=== PATIENT | female | born 1980 | race Caucasian/White ===

== ENCOUNTER 2021-08-24 06:54 | Day surgery (SDC) | payer OTHER, SELFPAY ==
[2021-08-20 07:57] VITALS: BMI 34.1
[2021-08-24 07:48] VITALS: BMI 34.0
[2021-08-24 07:58] VITALS: BP 124/52; PULSE 98; RESP 16; TEMP 36.6
[2021-08-24] MEDS: LACTATED RINGERS 1000 ML 1,000 ML 100 ML IV ×2 (08:00→10:17)
[2021-08-24] MEDS: ETHYL CHLORIDE 116 ML SPRAY 1 APPLIC TOPICAL (08:27)
[2021-08-24 09:09] LABS: Ur HCG Qualitative* Negative (Negative)
--- NOTE | 2021-08-24 09:57 | W.PM.GYNPROC ---
Procedure Note Time Seen by Provider: 09:58 Date Seen: 08/24/21 Procedure Details: DATE: 08/24/21 PREOPERATIVE DIAGNOSIS: History of menorrhagia. Irregular spotting on Mirena IUD POSTOPERATIVE DIAGNOSIS: History of menorrhagia. Irregular spotting on Mirena IUD NAME OF PROCEDURE: 1. Hysteroscopy. 2. D and C 3. Radha endometrial ablation. SURGEON: Trace ANESTHESIA: Monitored anesthesia care and paracervical block COMPLICATIONS: None . ESTIMATED BLOOD LOSS: <10 mL. FINDINGS: Normal-appearing uterine cavity, normal-appearing tubal ostia bilaterally.. PATHOLOGY SPECIMENS: Endometrial curettings. PROCEDURE: After obtaining informed consent, the patient was taken to the operating room where she received monitored anesthesia care. She was prepared and draped in the normal sterile fashion, in the dorsal lithotomy position. An open-sided bivalve speculum was introduced into the vagina and the cervix visualized. The anterior lip of the cervix was grasped with a single-tooth tenaculum for traction. A paracervical block was then administered using a total of 20 mL of a 50/50 mixture of 0.25% Marcaine and 1% lidocaine plain. The uterus was gently sounded. Sound length was 9 cm. The cervix length was determined to be 3.5 cm using Hegar dilators, yielding a uterine cavity length of 5.5 cm. The cervix was gently dilated to a #6 Hegar dilator. A hysteroscope was then advanced under direct visualization through the cervix into the uterine cavity. Sterile normal saline was used as distending medium. The uterine cavity was carefully inspected with the findings noted above. The hysteroscope was then removed. The endometrial lining was then sharply curetted. The Radha device was then set to a cavity length of 5.5 cm, inserted through the cervical os into the uterine cavity to the level of the fundus, and deployed. The device was sealed against the cervix. The safety checks were then passed x2 and the 2-minute treatment cycle initiated. Following completion of the treatment cycle, the Radha device was removed. The hysteroscope was advanced again into the uterine cavity and the uterine cavity inspected. A good ablation was noted from the internal os to fundus and to the cornua bilaterally. Pictures were taken for documentation purposes. The hysteroscope was removed. The tenaculum was removed. There was little bleeding from the tenaculum site, which was controlled with direct pressure sponge stick. All instruments were then removed. The patient tolerated the procedure well. Sponge, lap, needle, and instrument counts reported as correct x2. The patient was taken to the recovery room awake in a stable condition.
[2021-08-24 10:00] VITALS: BP 97/54; PULSE 88; RESP 14; TEMP 36.5; O2SAT 94
--- NOTE | 2021-08-24 10:02 | W.ANESCHARGE ---
Anesthesia Charges Start Date/Time Anesthesia Start Date: 08/24/21 Anesthesia Start Time: 09:11 Stop Date/Time Anesthesia Stop Date: 08/24/21 Anesthesia Stop Time: 09:59 Summary Emergency: No
[2021-08-24] MEDS: BUPIVACAINE 0.25% 30 ML 15 ML INJECTION (10:06)
[2021-08-24 10:15] VITALS: BP 100/58; PULSE 80; RESP 14; O2SAT 95
[2021-08-24 10:30] VITALS: BP 97/57; PULSE 84; RESP 14; O2SAT 94
[2021-08-24 10:46] VITALS: BP 112/74; PULSE 89; RESP 16; O2SAT 99
[2021-08-24 11:12] VITALS: BP 102/62; PULSE 82; RESP 16; O2SAT 98
--- NOTE | 2021-08-24 12:47 | W.ANESCHARGE ---
Anesthesia Charges Start Date/Time Anesthesia Start Date: 08/24/21 Anesthesia Start Time: 09:11 Stop Date/Time Anesthesia Stop Date: 08/24/21 Anesthesia Stop Time: 09:59 Summary Emergency: No
--- NOTE | 2021-09-03 14:27 | SUR.PREOP ---
Preoperative documentation charted by Eugene Reagan, closed that portion of chart by this nurse. Need to send to billing.
== END 2021-08-24 11:15 | disposition home or self-care (01) ==
PROVIDERS: PCP Family Medicine; Visit Provider Obstetrics & Gynecology
PROC: 0UF98ZZ Fragmentation in Uterus, Via Natural or Artificial Opening Endoscopic (ICD-10-PCS; CPT 58563; principal; 2021-08-24 08:30)
DX: N92.0 Excessive and frequent menstruation with regular cycle (principal); Z97.5 Presence of (intrauterine) contraceptive device
CPT/HCPCS: 58563; 00952; 81025; 88305; J1885; J2250; J2405; J2704; J3010; J3490; J7120

== ENCOUNTER 2021-10-01 14:00 | Outpatient (CLI) | payer OTHER, SELFPAY ==
--- NOTE | 2021-10-01 14:00 | CRLHL7_ITS ---
For Patients: As a result of the Century Cures Act, medical imaging exams and procedure reports are released immediately into your electronic medical record. You may view this report before your referring provider. If you have questions, please contact your health care provider. BILATERAL SCREENING MAMMOGRAM WITH COMPUTER-AIDED DETECTION AND TOMOSYNTHESIS TECHNIQUE: CC and MLO views were obtained. These mammographic images have been obtained using full-field digital technique. These mammographic images were interpreted with the benefit of computer-aided detection. Breast tomosynthesis was used in this interpretation. COMPARISON FILM: None. Baseline study. FINDINGS: There are scattered areas of fibroglandular density. IMPRESSION: There is no radiographic evidence for malignancy. ASSESSMENT: BI-RADS Category 1: Negative RECOMMENDATION: Routine screening mammogram in 1 year. A lay language report of this examination will be provided to the patient. PANKAJ AWAD M.D. Diagnostic Radiologist [email or web address] Transcribed: 7:[address]/Dictated by: Pankaj Awad MD @ 10/04/2021 1:50:00 PM (Electronically Signed)
== END 2021-10-01 14:01 | disposition home or self-care (01) ==
LOC: MAMMO 14:01
PROVIDERS: PCP Family Medicine; Visit Provider Family Medicine
DX: Z12.31 Encounter for screening mammogram for malignant neoplasm of breast (principal)
CPT/HCPCS: 77063; 77067

== ENCOUNTER 2023-07-14 14:49 | Outpatient (CLI) | payer OTHER, SELFPAY ==
--- NOTE | 2023-07-14 15:00 | CRLHL7_ITS ---
For Patients: As a result of the Century Cures Act, medical imaging exams and procedure reports are released immediately into your electronic medical record. You may view this report before your referring provider. If you have questions, please contact your health care provider. INDICATION: Pelvic pain. TECHNIQUE: Transabdominal and transvaginal pelvic ultrasound. COMPARISON: There is a report but no images from an outside pelvic ultrasound dated 03/24/2023. FINDINGS: Uterus is anteverted and measures 8.5 x 4.3 x 5.8 cm. Delete that endometrial stripe thickness is 5 mm scar in the lower uterine segment. Ovaries were seen transabdominally only and appear normal. Normal color spectral Doppler flow to both ovaries. The left ovarian cyst mentioned on the previous report is not visible. IMPRESSION: Normal pelvic ultrasound. Dictated by Afshin Ernandez MD @ 07/18/2023 8:53:21 AM (Electronically Signed)
== END 2023-07-14 14:50 | disposition home or self-care (01) ==
PROVIDERS: PCP Family Medicine; Visit Provider Family Medicine
DX: R10.2 Pelvic and perineal pain (principal)
CPT/HCPCS: 76830; 76856; 93976

== ENCOUNTER 2024-08-19 18:30 | Outpatient (CLI) | payer OTHER, SELFPAY ==
[2024-08-21 18:05] LABS: HPV Source Cervix; HPV, High Risk by TMA Not Detected
== END 2024-08-19 18:31 | disposition home or self-care (01) ==
PROVIDERS: PCP Family Medicine; Visit Provider Physician Assistant
DX: N93.8 Other specified abnormal uterine and vaginal bleeding (principal); Z12.4 Encounter for screening for malignant neoplasm of cervix
CPT/HCPCS: 87624; 87625; 88141; 88142

== ENCOUNTER 2024-10-20 19:42 | Emergency (ER) | payer OTHER, SELFPAY ==
[2024-10-20] VITALS (8 sets, daily range): BP systolic 128–150; BP diastolic 80–110; PULSE 91–105; RESP 14–20; TEMP 36.9; O2SAT 96–99; BMI 36.3
--- OUTSIDE RECORDS SUMMARY | 2024-10-20 19:44 | XMS_ITS | Encounter Summary ---
Author Organization [facility] Address [address] [address] Phone Care Team Providers Care Principal Process Engineer Name Role Phone Choice, No Pcp-Patient Primary Care Provider Mag vailable Donato Price MD Primary Care Provider + Encounter Details Date Type Department Care Team (Late st Contact Info) Description 12/16/2020 Lab Requisition [address] [phone] [facility] Employee Encounter for other administrative examinations Social History Tobacco Use Types Packs/Day Years Used Date Smoking Tobacco: Never Smokeless Tobacco: Never Alcohol Use Standard Drinks/Week Comments Not Currently 0 (1 standard drink = 0.6 oz pur e alcohol) PHQ-2 Answer Date Recorded PHQ-2 Total 2 11/03/2020 Comments No Sex and Gender Information Value Date Recorded Sex Assigned at Not on file Legal Sex Female 4:55 PM CDT Gender Identity Not on file Sexual Orientation Not on file 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 No / Unsure 12/10/2020 9:52 AM CDT documented as of this encounter Functional Status * Patient's Vision Adequate to Safely Complete Daily Activities Answer Date of Assessment Author Yes 09/27/2020 9:36 PM CDT Juliana Flowers CNA * Patient's Memory Adequate to Safely Complete Daily Activities Answer Date of Assessment Author Yes 09/27/2020 9:36 PM CDT Juliana Flowers CNA documented as of this encounter Mental Status * Patient's Judgment Adequate to Safely Complete Daily Activities Answer Entry Date Author Yes 09/27/2020 9:36 PM CDT Juliana Flowers CNA documented in this encounter Plan of Treatment Not on file documented as of this encounter Procedures Procedure Name Priority Date/Time Associated Diagnosis Comments SARS-COV-2/INFLUEN ZA A AND B/RESPIRATORY SYNCYTIAL VIRUS, MOLECULAR DETECTION Routine 12/16/2020 10:58 AM CDT Encounter for other administrative examinations documented in this encounter Results * SARS-COV-2/INFLUENZA A&B/RESPIRATORY SYNCYTIAL VIRUS, MOLECULAR DETECTION (12/16/2020 10:58 AM CDT) SARS-CoV-2 RNA (COVID-19) Not Detected Not Detected, Presumptive Negative, Negative 12/16/2020 11:54 AM CDT [facility] Influenza A Not Detected Not Detected, Invalid 12/16/2020 11:54 AM CDT [facility] Influenza B Not Detected Not Detected, Invalid 12/16/2020 11:54 AM CDT [facility] Respiratory Syncytial Virus Negative Negative 12/16/2020 11:54 AM CDT [facility] Swab ENTIRE NASOPHARYNX / Unknown COVID-19 Collection / Unknown 12/16/2020 10:58 AM CDT 12/16/2020 11:03 AM CDT [facility] Health EC MICROBIOLOGY - GENE RAL ORDERABLES Final Result Performing Organization Address City/State/[facility] Co de Phone Number [facility] [address] [place] [address] documented in this encounter Visit Diagnoses Diagnosis Encounter for other administrative examinations documented in this encounter Care Teams Principal Process Engineer Relationship Specialty Start Date End Date Choice, No Pcp-Patient PCP - General 09/24/20 12/23/20 Donato Price MD PCP - General Family Medicine 06/18/21 documented as of this encounter
--- OUTSIDE RECORDS SUMMARY | 2024-10-20 19:44 | XMS_ITS | Clinical Summary ---
Author Organization [facility] Address [address] [address] Phone Care Team Providers Care Gun Numberer Name Role Phone Donato Price MD Primary Care Provider + Allergies Active Allergy Reactions Criticality Noted Date Comments Penicillins Hives High 03/03/2016 Tuberculin Ppd RASH Medium 10/01/2020 Medications Fexofenadine HCl (TOMA ALLERGY OR) Take 180 mg by mouth one time a day. Active levonorgestrel (levonorgestrel ) 20 MCG/24HR 52 mg intra uterine device Insert 1 Intra Uterine Device into the uterus Continuous. Due to be changed in April of 2021. Was inserted in April of 2016. Active levothyroxine (Synthroid) 175 MCG tabletIndicatio ns:Hypothyroidi sm, postsurgical,Pa pillary thyroid carcinoma (HCC) Take 1 tab daily for 6 days, and 2 tabs on day seven of each week. 100 Tablet 04/22/2021 Active buPROPion XL (Wellbutrin XL) 150 MG 24 hour extended release tabletIndicatio ns:Depressive disorder,Anxiet y TAKE 1 TABLET BY MOUTH ONE TIME A DAY. 90 Tablet 09/14/2021 Active citalopram (CeleXA) 40 MG tabletIndicatio ns:Depressive disorder,Anxiet y Take 1 Tablet by mouth one time a day. 90 Tablet 10/06/2021 Active Active Problems Problem Noted Date Diagnosed Date Papillary thyroid carcinoma 10/01/2020 Overview (04/21/2021): No HOOVER treatment. Did have 4/6 nodes +. Total thyroidectomy in 2019. : Thyroglobulin 0.3, and Thyg antibody negative. Assessment & Plan (06/18/2021 11:27 AM CDT): As long as the Thyroglobulin level stays below 0.5, and the antibody is not present; with a TSH below 2.6, I would not make any changes. If the TSH goes above 2.6, then would increase your dose slightly (like maybe a 25 mcg pill once a week). Repeat U/s in another year. Let me know of any changes you notice. Repeat TSH in July - August. Assessment & Plan (12/10/2020 10:22 AM CDT): Dose change for levothyroxine to allow TSH suppression between 0.1 and 0.5 If you have symptoms of hyperthyroidism, let me know and we can adjust the dose. Symptoms : Palpitations, heart racing, tremor, insomnia, irregular cycles, anxiety/ irritability, weight gain or loss, hair loss, heat intol, or lose bowel. U/s of the neck in April. Sooner if you notice any changes. Take a daily dose of vitamin D3 2000 I.U. daily Hypothyroidism, postsurgical 10/01/2020 Overview (12/09/2020): No HOOVER treatment. Did have 4/6 nodes +. Total thyroidectomy in 2019. Assessment & Plan (10/01/2020 2:54 PM CDT): 1. Would have a target TSH of 0.1- 0.5 , or higher if you have symptoms of hyperthyroidism 2. Continue with your current dose of levothyroxine 150 x 6 days and 300 mcg once a week. 3. Repeat ultrasound 4. Labs today for thyroglobulin, and TSH, and T4. Allergic rhinitis 04/19/2018 Depressive disorder 04/19/2018 Anxiety 11/02/2010 Resolved Problems Problem Noted Date Diagnosed Date Resolved Date Choledocholithiasis with acu te cholecystitis with obstruction 09/26/2020 11/03/2020 Overview (09/26/2020): Intraoperative cholangiogram completed with cholecystectomy demonstrating stone in distal common duct with minimal flow of contrast into the duodenum Acute cholecystitis 09/25/2020 11/04/19 Primary malignant neoplasm of thyroid gland 10/17/2019 12/09/2020 Fever and chills 05/10/2017 11/03/2020 Sore throat 05/10/2017 11/03/2020 Viral URI with cough 05/10/2017 021 Overview (11/02/2020): Impression - 10May2017: influenza A and B are nagative, strep is negative, will send for cx. I discussed delayed antibiotic tx if she is not feeling better in the next 4 days then I will take the Z jennifer salt water garggle RTC if no improvement Dont take the antibiotic with your celexa. Finish the course of antbiotics and you can resume your celexa. due to prolongation of Q-T Obesity 03/04/2016 11/03/2020 37+ weeks gestation completed 09/30/2008 11/03/2020 History of section 09/30/2008 11/03/2020 Overview (11/02/2020): x 2 Polyhydramnios, with delivery 09/30/2008 11/03/2020 Disorder of coccyx 08/27/2008 Overview (11/02/2020): Coccydynia Abnormality in heart rate or rhythm 08/13/2008 11/03/2020 hydrops 08/13/2008 11/03/2020 Immunizations Immunization Administration Dates Next Due Influenza Quad Preservative Free 03/11/2015,04/2013 Influenza Trivalent Live Int ranasal (Flumist) 11/10/2010 Influenza Trivalent With Preservative 11/14/2012 ,12/20/2011 Influenza Unspecified Formulation 2018,03/11/2015,11/22/2013,2012,12/20/2011,11/10/2010,11/12/2008,1 03/09/2007,11/20/2006,12/21/2005 Tdap (7 years and older) 08/07/2018,11/12/2008 Surgical History Surgery Date Site/Laterality Comments TUBAL LIGATION 02/21/2012 Date Of Procedure: 2013 SECTION Date Of Procedure: 2007, 2008, 2012 WISDOM TOOTH EXTRACTION CHOLECYSTECTOMY, LAPAROSCOPIC 09/26/2020 Abdomen/N/A Procedure: LAPAROSCOPY CHOLECYSTECTOMY WITH CHOLANGIOGRAMS; Surgeon: Thad Pinzon MD; Location: [facility] ERCP 09/28/2020 Mouth/N/A Procedure: ENDOSCOPIC RETROGRADE CHOLANGIOPANCREATOGRAPHY WITH STENT PLACEMENT, balloon sweep, sphincterotomy; Surgeon: Rolf Solis MD; Location: [facility] Medical devices from this surgery are in the Medical Devices section. THYROIDECTOMY APPENDECTOMY THYROIDECTOMY,ANOOP,LATIA NECK SURG 10/21/2018 N/A Medical History Medical History Date Comments Vitamin D deficiency 02/21/2016 Note: Level is 15. Start vitamin D 2,000 iu daily and recheck in 3-6 months Date Onset: Feb 2016 Hyperlipidemia 02/21/2016 Date Onset: Feb 2016 Anxiety Depression Thyroid cancer (HCC) Pap smear for cervical cancer screening 03/04/19 17 Neg HPV neg 37+ weeks gestation completed 09/30/2008 Abnormality in heart r ate or rhythm 08/13/2008 Acute cholecystitis 09/25/2020 Choledocholithiasis with acu te cholecystitis with obstruction 09/26/2020 Intraoperative cholangi ogram completed with cholecystectomy demonstrating stone in distal common duct with minimal flow of contrast into the duodenum Disorder of coccyx 08/27/2008 Coccydynia hydrops 08/13/2008 History of section 09/30/2008 Form atting of this note might be different from the original. x 2 Obesity 03/04/2016 Polyhydramnios, with delivery 09/30/2008 Sore throat 05/10/2017 Viral URI with cough 05/10/2017 Impression - 10May2017: influenza A and B are nagative, strep is negative, will send for cx. I discussed delayed antibiotic tx if she is not feeling better in the next 4 days then I will take the Z jennifer salt water garggle RTC if no improvement Dont take the antibiotic with your celexa. Finish the course of antbiotics and you can resume your celexa. 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 Not on file Not on file Obstetrics History Para Term AB IAB SAB Ectopic Molar Multiple Living Live Births 3 3 3 0 0 0 0 0 0 0 3 3 Date Outcome GA Total Labor Labor/2nd/3rd Weight Sex Type Anes PTL Leatha A1 A5 Name Clin 2007 Term 41w 0d 3374 g (7 lb 7 oz) F CS-Un spec Livin g Millie Delivery Location:[facility] Comments:Breech 2008 Term 37w 0d 3800 g (8 lb 6 oz) M CS-LT ranv Spinal N Livin g 8 9 Kunal Block Delivery Location:[facility] Comments: SVT 2012 Term 39w 1d 0h 01m 4165 g (9 lb 2.9 oz) M CS-LT ranv Spinal N Livin g 8 9 [place],BAB Y BOY LOCHE R, JOSE W Delivery Location:[facility] Last Filed Vital Signs Vital Sign Reading Time Taken Comments Blood Pressure 108/70 06/18/2021 11:07 AM CDT Pulse 81 06/18/2021 11:07 AM CDT Temperature 35.9 C (96.6 F) 11/03/2020 8:29 AM CDT Respiratory Rate 16 11/03/2020 8:29 AM CDT Oxygen Saturation 99% 06/18/2021 11:07 AM CDT Inhaled Oxygen Concentration - - Weight 94.3 kg (208 lb) 06/18/2021 11:07 AM CDT Height 167.6 cm (5' 6) 06/18/2021 11:07 AM CDT Body Mass Index 33.57 06/18/2021 11:07 AM CDT Plan of Treatment Health Maintenance Due Date Last Done Comments Cervical Cancer Screening 1980 Last pap w/ HPV Testing 1980 Last pap w/o HPV Testing 1980 MAMMO,SCREEN 1980 Hepatitis B Vaccine (Standin g Order) (1 of 3 - 19+ 3-dose series) 1999 Pneumococcal/PCV20 Vaccine: Pediatrics (2-5 yrs) and At-Risk Patients (6-49 yrs) (Standing Order) (1 of 2 - PCV) 1999 HPV Vaccine (Standing Order) (1 - Risk 3-dose SCDM series) 2007 TETANUS (Standing Order) 08/07/2028 08/07/2018, 10/22 PERTUSSIS (Standing Order) Completed 08/07/2018, Medical Devices Implanted Type Area Airplane Gas Tank Liner Assembler Device Identifier Shelf Expiration Date Model / Serial / Lot Stent Panc Ch 4fr 3cm [place] - [id number] Implanted:Qty: 1 on 09/28/2020 by Rolf Solis MD at [facility] N/A: Bile Duct [id number] / NA / [id number] Advance Directives For more information, please contact: [phone] * Full Code (Latest Code Status on File) Date Activated Date Inactivated Comments 09/26/2020 11:01 AM 09/28/2020 8:52 PM * Full Code Date Activated Date Inactivated Comments 09/26/2020 8:04 AM 09/26/2020 11:01 AM * Full Code Date Activated Date Inactivated Comments 09/26/2020 5:50 AM 09/26/2020 7:52 AM Care Teams Gun Numberer Relationship Specialty Start Date End Date Donato Price MD PCP - General Family Medicine 06/18/21
--- OUTSIDE RECORDS SUMMARY | 2024-10-20 19:44 | XMS_ITS | Clinical Summary ---
Author Organization [facility] Address [address] [place] [address] Care Team Providers Care Blood Coordinator Name Role Phone Ana Gudino MD Primary Care Provider [phone] Source Comments You are receiving this document as you are listed as the primary care provider,follow-up provider, or the patient has been referred to you for consultation.This is in compliance with the Medicare and[facility] EHR Incentive Program,which states Providers who transition their patient to another setting of careor provider of care or refers their patient to another provider of care shouldprovide summary care record for each transition of care or referral. [facility] All[facility] Active Allergy Reactions Criticality Noted Date Comments Penicillins Rash High 09/09/2003 Medications loratadine (CLARITIN) 10 MG tablet Take 1 tablet by mouth daily as needed. LW Addl Instr:Indicate d for: Allergies 90 3 0 Active citalopram (CELEXA) 40 MG tablet Take 1 tablet by mouth daily (every 24 hours). 90 tablet 3 6 Active trimethoprim-cady ymyxin B (POLYTRIM) 32063-3.1 UNIT/ML-% eye drop solutionIndicati ons:Acute bacterial conjunctivitis, unspecified laterality Place 1 drop into the right eye every 4 hours. 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/2016): Coccydynia Resolved Problems Problem Noted Date Diagnosed Date Resolved Date with poor obstetric history 11/16/2011 03/11/2015 Overview (10/12/2016): with other poor obstetric history(V23.49) Immunizations Immunization Administration Dates Next Due Flu Vac Preserv Free (3+yrs) 11/14/2012, 12/20/2011,11/12/2008,2007,11/20/2006,12/21/2005 Influenza IIV4 (Quadrivalent ) 0.5mL (81536) 03/11/2015,11/22/2013 Influenza LAIV (Nasal, 2-49 yrs) 11/10/2010 TDAP (BOOSTRIX) 11/12/2008 Family History Medical History Relation Name Comments Cancer Maternal Grandfather Adopted Maternal Grandmother Thyroid Disorder Maternal Grandmother Relation Name Status Comments Father Alive Mother Alive Brother Alive Maternal Grandfather Maternal Grandmother Paternal Grandfather Paternal Grandmother Social History Tobacco Use Types Packs/Day Years Used Date Smoking Tobacco: Never Smokeless Tobacco: Never Alcohol Use Standard Drinks/Week Comments No 0 (1 standard drink = 0.6 oz pur e alcohol) Comments No Sex and Gender Information Value Date Recorded Sex Assigned at Not on file Legal Sex Female 6:01 AM CDT Gender Identity Not on file Sexual Orientation Not on file 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 Not on file Not on file Not on file Last Filed Vital Signs Vital Sign Reading Time Taken Comments Blood Pressure 104/76 08/04/2015 9:27 AM CDT Pulse 72 08/04/2015 9:27 AM CDT Temperature 36.7 C (98.1 F) 10/25/2014 10:19 AM CDT Respiratory Rate 18 10/25/2014 10:19 AM CDT Oxygen Saturation 98% 10/25/2014 10:19 AM CDT Inhaled Oxygen Concentration - - Weight 85.9 kg (189 lb 7 oz) 03/11/2015 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 Height 166.4 cm (5' 5.5) 03/11/2015 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 Body Mass Index 31.04 03/11/2015 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 Plan of Treatment Health Maintenance Due Date Last Done Comments Hep C Screening (Preventive Services) 1980 Mammogram 1980 Adult Preventive Visit 1998 HepB Vaccine (1) 1999 HPV Vaccine (1 - 3-dose SCDM series) 2007 Cervical Cancer Screening Due 11/23/2013 11/22/2013, 06/18/2012, 07/12/2011, Additional history exists DTaP/Tdap/Td Vaccine (2 - Tdap) 11/12/2018 11/12/2008, 11/12/2008 (Completed) COVID-19 Vaccine (1 - season) 2023 Influenza Vaccine (#1) 2024 6, 11/22/2013, 11/14/2012, Additional history exists Zoster/Shingles Vaccine (1 of 2) 2030 HIV Screening (Preventive Services) Completed 10/11/2011, 03/13/2008, 11/06/2006 HepA Vaccine Aged Out No longer eligi ble based on patient's age to complete this topic Hib Vaccine Aged Out No longer eligi ble based on patient's age to complete this topic IPV (Polio) Vaccine Aged Out No longe r eligible based on patient's age to complete this topic MCV4 Vaccine Aged Out No longer eligi ble based on patient's age to complete this topic Meningococcal B Vaccine Aged Out No l onger eligible based on patient's age to complete this topic Pneumococcal Vaccine Aged Out No long er eligible based on patient's age to complete this topic Procedures Procedure Name Priority Date/Time Associated Diagnosis Comments ANATOMICAL PATH LIQUID BASED Routine 11/22/2013 11:40 AM CDT HIV ANTIBODY Routine 10/11/2011 4:52 PM CDT Special screening examination for other specified viral diseases Screening examination for venereal disease from Last 3 Months or Most Recently Relevant to Health Maintenance Results * Pap Smear (11/22/2013 11:40 AM CDT) 11/22/2013 11:4 0 AM CDT Narrative HP CONVERSION - 12/09/2013 10:56 AM CDT FINAL GYNECOLOGICAL CYTOLOGY REPORT Pathology #: [id number] Date Obtained: 11/22/2013 Date Received: 11/25/2013 INTERPRETATION/RESULTS: Negative for Intraepithelial Lesion or Malignancy. SPECIMEN ADEQUACY: Satisfactory for Evaluation. Endocervical cells/transformation zone component present. Verified on 12/09/2013 by VALE CERVANTES(ASCP) (electronic signature) CLINICAL NOTES: Abnormal bleeding: No, LMP: ending now, Hormonal TX: No LIQUID BASED PAP SMEAR SPECIMEN TYPE: CERVICAL & HPV REGARDLESS OF PAP RESULT PLEASE NOTE: The pap smear is a screening test designed to aid in the detection of cervical cancer and its precursor lesions. It is not a diagnostic procedure and should not be used as the sole means of detecting cervical cancer. Both false-positive and false-negative reports may occur. End of Report Ana Estrada CREDIT REFERENCE CLERK, CAMPAIGN MANAGEMENT SPECIALIST LAB_1 F inal Result HP CONVERSION * HIV ANTIBODY (10/11/2011 4:52 PM CDT) HIV 1/HIV 2 Non-React Non-Reacti ve HP CONVERSION 10/11/2011 4:52 PM CDT 10/11/2011 8:14 PM CDT Patria Castellon CREDIT REFERENCE CLERK, CAMPAIGN MANAGEMENT SPECIALIST LAB_1 Final Result HP CONVERSION from Last 3 Months or Most Recently Relevant to Health Maintenance [place] [phone] Advance Directives * Full Code (Latest Code Status on File) Date Activated Date Inactivated Comments 05/08/2012 1:04 PM 05/11/2012 1:38 PM Care Teams Blood Coordinator Relationship Specialty [place] [id number] [facility] [place] [id number] PCP - General 07/31/13
--- NOTE | 2024-10-20 19:46 | CT_ITS ---
Patient: ROBERT REID Facility:?[facility] R[facility] Patient ID:?[id number] Site Patient ID:?[id number]. Site :?1980 Study:?CT-Head Angio CODE STROKE W/ 95CC ISOVUE 370-10/20/2024 8:00:44 PM Ordering Physician:?Joseph Fierro Final Report: INDICATION: Acute stroke, right-sided numbness, slurred speech. TECHNIQUE: CTA head using intravenous contrast with bolus tracking, 3D angiographic rendering using maximum intensity projection (MIP) and images permanently archived. CTA neck using intravenous contrast with bolus tracking, 3D angiographic rendering using maximum intensity projection (MIP) and images permanently archived. FINDINGS: CTA head: There is normal opacification of the intracranial vasculature. There is no large vessel occlusion or significant intracranial stenosis. No aneurysm is identified. CTA neck: There is no significant carotid artery stenosis or dissection. There is no significant vertebral artery stenosis or dissection. IMPRESSION: Unremarkable head CTA. No significant carotid or vertebral artery stenosis or dissection. Please note that all CT scans at this facility use dose modulation, iterative reconstruction, and/or weight-based dosing when appropriate to reduce radiation dose to as low as reasonably achievable. Dictated by Jluis James MD @ 10/20/2024 8:50:46 PM Signed by:?Jluis James MD @10/20/2024 8:50:46 PM (Electronic Signature)
--- NOTE | 2024-10-20 19:46 | CRLHL7_ITS ---
For Patients: As a result of the Century Cures Act, medical imaging exams and procedure reports are released immediately into your electronic medical record. You may view this report before your referring provider. If you have questions, please contact your health care provider. INDICATION: Facial numbness. Slurred speech TECHNIQUE: Non-contrast CT of the head is submitted. No comparisons. FINDINGS: Small regions of decreased attenuation involving the superior cerebellar hemispheres may represent small chronic lacunar infarcts. The ventricles, sulci and gyri are of normal size, shape and contour. Midline structures are centrally located. No convincing evidence of intra- or extra-axial fluid collections. IMPRESSION: 1. No radiographic evidence of acute intracranial abnormalities. 2. Small regions of decreased attenuation involving the superior cerebellar hemispheres may represent small chronic lacunar infarcts. Please note that all CT scans at this facility use dose modulation, iterative reconstruction, and/or weight-based dosing when appropriate to reduce radiation dose to as low as reasonably achievable. Dictated by Lazaro Naranjo MD @ 10/20/2024 8:09:05 PM (Electronically Signed)
--- NOTE | 2024-10-20 19:52 | ED_ITS ---
HPI - Neuro Symptoms/Deficit General Time Seen by Provider: 19:48 Date Seen: 10/20/24 Chief Complaint: Neuro Symptoms/Altered Deficit Stated Complaint: Stroke Time Seen by Provider: 10/20/24 19:48 Source: patient, EMS and RN notes reviewed Mode of arrival: EMS Limitations: no limitations History of Present Illness HPI Narrative: This 44-year-old female was brought in by [facility] on a stroke code. Her last known well was about 630. She was driving and started to note her right face felt funny, felt numb and tingly. Her son called her on the phone at some point and she noted her speech was slurred. She noted no difficulty with her arm or leg on that side. No visual changes, no double vision. EMS got her blood sugar to be 120. Her blood pressure was 1 50s systolic, heart rate low 100s. Patient denied any headache, no trauma. She has no history of Chavira's palsy. Does have a history of thyroid cancer status post thyroidectomy. She has had a tubal l igation, is on no hormones or contraceptives. She is not on any blood thinners. Related Data Home Medications ?Medication ?Instructions ?Recorded ?Confirmed bupropion HCl 150 mg 24 hr tablet, 150 mg PO DAILY 10/20/24 extended release citalopram 40 mg tablet 40 mg PO DAILY 08/17/2109/22 levothyroxine 175 mcg tablet 112 mcg PO DAILY 08/19/24 10/20/24 levothyroxine 50 mcg capsule 50 mcg PO QDAY 08/19/24 0 10/20/24 fexofenadine .ROUTE 10/20/24 Allergies Allergy/AdvReac Type Severity Reaction Status Date / Time Penicillin Allergy Intermediate Hives Uncoded 08/19/24 17:35 Tuberculin Tests AdvReac Intermediate Hives Uncoded 08/19/24 17:35 Review of Systems Status of ROS: Reports: 6 or more systems reviewed and unremarkable except as noted in History and below [facility] Medical History Seasonal allergies ?J30.2 - Other seasonal allergic rhinitis (ICD-10) Postoperative hypothyroidism ?E89.0 - Postprocedural hypothyroidism (ICD-10) Major depression in remission ?F32.5 - Major depressive disorder, single episode, in full remission (ICD- 10) History of malignant neoplasm of thyroid ?Z85.850 - Personal history of malignant neoplasm of thyroid (ICD-10) Anxiety ?F41.9 - Anxiety disorder, unspecified (ICD-10) Surgical History History of endometrial ablation ?Z98.890 - Other specified postprocedural states (ICD-10) Status post tubal ligation ?Z98.51 - Tubal ligation status (ICD-10) Status post thyroidectomy ?E89.0 - Postprocedural hypothyroidism (ICD-10) Status post cholecystectomy ?Z90.49 - Acquired absence of other specified parts of digestive tract (ICD- 10) Status post appendectomy ?Z90.49 - Acquired absence of other specified parts of digestive tract (ICD- 10) History of section ?Z98.891 - History of uterine scar from previous surgery (ICD-10) 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 Nonsmoker Occasional alcohol use What is your current living situation?: I presently have a place to live Problems where you live: no known problems In the past 12 months, utilities in danger of being shut off: no In past 12 months, lack of transportation kept you from medical appts, meetings, work, or getting things needed for daily living: no In the past 12 mos, have been you worried that your food would run out before you had money to buy more?: never true In the past 12 mos, the food you bought just didn't last and you didn't have money to buy more?: never true Smoking Status: Never smoker Do you use any of these nicotine containing products: None How often do you have a drink containing alcohol: never AUDIT-C Alcohol total score: 0 Non-prescribed substance use: denies use Caffeine: Yes How often does anyone, including family, friends and others, physically hurt you : never How often does anyone, including family, friends and others, insult or talk down to you: never How often does anyone, including family, friends and others, threaten you with harm: never How often does anyone, including family, friends and others, scream or curse at you: never Exam Const: Vital Signs, click to edit/add: Vital Signs - 24 hr 10/20/24 19:42 10/20/24 20:00 10/20/24 20:19 Temperature 98.4 F Pulse Rate 99 91 Pulse Rate [Left P ulse Oximeter] 105 H Respiratory Rate 16 14 18 Blood Pressure 131/83 131/80 Blood Pressure [Le ft Upper Arm] 150/110 H Pulse Oximetry 96 98 97 Oxygen Delivery Me thod Room Air 10/20/24 20:28 10/20/24 20:37 10/20/24 20:43 Temperature Pulse Rate 96 92 93 Pulse Rate [Left P ulse Oximeter] Respiratory Rate 18 20 18 Blood Pressure 139/81 135/93 H 128/83 Blood Pressure [Le ft Upper Arm] Pulse Oximetry 99 97 99 Oxygen Delivery Me thod 10/20/24 20:47 10/20/24 20:52 Temperature Pulse Rate 101 H 94 Pulse Rate [Left P ulse Oximeter] Respiratory Rate 18 18 Blood Pressure 131/83 129/80 Blood Pressure [Le ft Upper Arm] Pulse Oximetry 98 98 Oxygen Delivery Me thod Patient was met in the hallway off the ambulance [place] and taken directly to CT. She is alert, interactive, no apparent distress. Baseline seems to have some right facial drooping but when she smiles does seem to resolve. She can close both eyes. Pupils equal round, conjugate gaze, sclera clear. No visual field cuts by confrontation. Neck is supple, no masses. Lungs are clear, breathing easy on room air. Speech is dysarthric with slurring of some of her words. CV regular rate and rhythm, no murmur, normal S1-S2. Abdomen soft, nontender, nondistended. Strength at her shoulders, biceps, wrist and hands are 5/5 and symmetric throughout. She can raise each leg off the bed, strength about her ankles and toes seems to be 5/5 and symmetric. Normal light touch sensation of her arms and legs. Feels sensation of numbness in her right face. I am assigning her a score of 3, 1 for facial asymmetry with her smile, 1 for her sensory changes right face and 1 for the mild dysarthria. Documenting provider has reviewed patient's vital signs: yes Course Course ED Course: Patient will be having her CT in her CT angiography done of her head and neck. She will come back to the ER afterwards. I am going to page stroke Neurology. Patient has neurologic deficits of right facial numbness tingling, slurred speech. I do have concerns that this represents acute ischemia. Reevaluation(s) Time of Reevaluation #1: 20:02 Reevaluation #1: Nursing staff notified us that the last known well is technically 6:20 p.m.. That is when she started feeling funny. Her son called her at 6:30 p.m. and the slurred speech was noted. Time of Reevaluation #2: 20:40 Reevaluation #2: Nursing staff had to look for another IV site to give the to neck to place. I reviewed with patient that she would be getting the thrombolytics, we discussed risks and benefits. Speech is still dysarthric at times. Time of Reevaluation #3: 21:01 Reevaluation #3: Nursing staff reports to me that patient is completely resolved. Consultations Consultation #1: Spoke with Stroke Neurology Dr. Ramos from [place]. We will make sure that images are getting sent to her, I will talk to Radiology immediately after get a phone with her. Did review the case. She is going to evaluate this patient. 8:17 p.m.: Dr. Ramos has called back, she thinks this patient is a good candidate for lytics. Will order the to neck to place. She does note patient has a migraine history but there is nothing in her history right now suggesting that this is migrainous in nature. She will arrange for placement for this patient. I have updated nursing staff of the plans and will get the order in for the tenecteplase. Time: 19:57 Vital Signs Vital signs: Initial Vital Signs Temperature 98.4 F 10/20/24 19:42 Temperature Source Temporal Artery Scan 10/20/24 19:42 Pulse Rate 105 H 10/20/24 19:42 Respiratory Rate 16 10/20/24 19:42 Blood Pressure 150/110 H 10/20/24 19:42 Blood Pressure Mean 123 H 10/20/24 19:42 Blood Pressure Position Semi-Fowlers 10/20/24 19:42 Pulse Oximetry 96 10/20/24 19:42 Oxygen Delivery Method Room Air 10/20/24 19:42 Vital Signs Temperature 98.4 F 10/20/24 19:42 Pulse Rate 105 H 10/20/24 19:42 Respiratory Rate 16 10/20/24 19:42 Blood Pressure 150/110 H 10/20/24 19:42 Pulse Oximetry 96 10/20/24 19:42 Oxygen Delivery Method Room Air 10/20/24 19:42 Temperature 98.4 F 10/20/24 19:42 Pulse Rate 94 10/20/24 20:52 Respiratory Rate 18 10/20/24 20:52 Blood Pressure 129/80 10/20/24 20:52 Pulse Oximetry 98 10/20/24 20:52 Oxygen Delivery Method Room Air 10/20/24 19:42 Medications Administered Medications: Discontinued Medications Generic Name Dose Route Start Last Admin Trade Name Freq PRN Reason Stop Dose Admin Tenecteplase 25 mg 10/20/24 20:21 10/20/24 20:33 Tenecteplase 5 Mg/Ml Inj 0.25 mg/kg (25 mg) 10/20/24 20:22 25 mg IVP Administration ONCE ONE MDM - Neuro Symptoms/Deficit Lab Data Attestation: I reviewed the patient's lab results. Labs: Lab Results 10/20/24 Range/Units 20:15 WBC 8.83 (4.50-11.00) K/uL RBC 4.23 (4.00-5.20) m/uL Hgb 11.7 L (12.0-16.0) gm/dL Hct 35.9 (33.0-51.0) % MCV 85 (80-100) fL MCH 28 (26-34) pg MCHC 33 (32-36) gm/dL RDW Coeff of Al 14.7 (11.5-15.5) % Plt Count 217 (140-440) K/uL Neut % (Auto) 62.7 (42.0-72.0) % Lymph % (Auto) 28.5 (20-44) % [place] % (Auto) 5.9 (0.0-11.0) % Eos % (Auto) 1.2 (0.0-7.0) % Baso % (Auto) 0.5 (0.0-3.0) % Neut # (Auto) 5.53 (1.7-7.0) K/uL Lymph # (Auto) 2.52 (0.90-2.90) K/uL [place] # (Auto) 0.50 (0.00-0.90) K/UL Eos # (Auto) 0.11 (0.00-0.50) K/uL Baso # (Auto) 0.04 (0.00-0.30) K/uL Abs Immat Gran (auto) 0.11 (0.00-0.30) K/uL Imm/Tot Granulo (auto) 1.2 % INR 0.91 (0.91-1.10) APTT 26 (23-33) Seconds Sodium 134 L (135-149) mmol/L Potassium 3.3 L (3.6-5.1) mmol/L Chloride 102 (96-114) mmol/L Carbon Dioxide 26 (20-32) mmol/L Anion Gap 6 L (7-15) mEq/L BUN 12 (5-24) mg/dL Creatinine 0.9 (0.5-1.5) mg/dL Estimated Creat Clear 74.67 Estimated GFR 81 ml/min Glucose 98 (60-115) mg/dL Calcium 8.6 (8.4-10.6) mg/dL Total Bilirubin 0.3 (0.1-1.5) mg/dL AST 21 (12-35) U/L ALT 24 (4-35) U/L Alkaline Phosphatase 66 (40-150) U/L Total Protein 5.9 L (6.0-8.3) g/dL Albumin 3.4 (3.3-5.0) g/dL Imaging Data CT scan - head: Attestation: I have reviewed the pertinent imaging results. Radiologist's impression: Patient: [facility] Facility:?[facility] Patient ID:?[id number] Site Patient ID:?[id number]. Site :?1980 Study:?CT-Head CODE STROKE W/O-10/20/2024 8:00:04 PM Ordering Physician:Ramona Fierro Final Report: INDICATION: Facial numbness. Slurred speech TECHNIQUE: Non-contrast CT of the head is submitted. No comparisons. FINDINGS: Small regions of decreased attenuation involving the superior cerebellar hemispheres may represent small chronic lacunar infarcts. The ventricles, sulci and gyri are of normal size, shape and contour. Midline structures are centrally located. No convincing evidence of intra- or extra-axial fluid collections. IMPRESSION: 1. No radiographic evidence of acute intracranial abnormalities. 2. Small regions of decreased attenuation involving the superior cerebellar hemispheres may represent small chronic lacunar infarcts. Please note that all CT scans at this facility use dose modulation, iterative reconstruction, and/or weight-based dosing when appropriate to reduce radiation dose to as low as reasonably achievable. Dictated by Lazaro Naranjo MD @ 10/20/2024 8:09:05 PM (Electronic Signature) CT- Other: Attestation: I have reviewed the pertinent imaging results. Radiologist's impression: [facility]:?[facility] Patient ID:?[id number] Site Patient ID:?[id number]. Site :?1980 Study:?CT-Head Angio CODE STROKE W/ 95CC ISOVUE 370-10/20/2024 8:00:44 PM Ordering Physician:?Joseph Fierro Preliminary Report: FINDINGS: The visualized 1st and 2nd order intracranial vessels appear patent. No convincing evidence of high grade narrowing or prominent aneurysm formation. P reliminary results were messaged to Dr. Lee via [employer] at 2012 hours. Dictated by Lazaro Naranjo MD @ 10/20/2024 8:13:20 PM Read by:?Lazaro Naranjo MD @10/20/2024 8:14:20 PM Patient: [facility] Facility:?[facility] Patient ID:?[id number] Site Patient ID:?[id number]. Site :?1980 Study:?CT-Neck Angio Angio CODE STROKE W/95CC ISOVUE 370-10/20/2024 8:01:28 PM Ordering Physician:?Joseph Fierro Preliminary Report: FINDINGS: The cervical arteries appear patent. No convincing evidence suspicious high- grade narrowing or prominent aneurysm formation. Dictated by Lazaro Naranjo MD @ 10/20/2024 8:14:45 PM Read by:?Lazaro Naranjo MD @10/20/2024 8:14:49 PM ECG Data Attestation: I personally reviewed and interpreted this ECG as follows: (Normal sinus rhythm, 93 beats per minute.) ECG interpretation date: 10/20/24 ECG interpretation time: 20:05 Prior ECG tracings: not available for review Critical Care Time Critical Care Time Critical Care Time: Yes Attestation: The patient required my highest level preparedness to intervene emergently and I personally spent this critical care time directly and personally managing the patient. This critical care time included: Obtaining a history; Examining the patient; Pulse oximetry; Ordering and reviewing of studies; Arranging urgent treatment with development of a management plan; Evaluation of patients response to treatment; Frequent reassessment discussions with other providers. This critical care time was performed to assess and manage the high probability of imminent life-threatening deterioration that could result in multiorgan failure. It was exclusive of separate billable procedures and treating other patients and teaching time. Total Critical Care Time in Minutes: 45 Discharge Plan Discharge Clinical Impression: Ischemic cerebrovascular accident (CVA) Patient Disposition: Xfer [facility] Discharge Location: [facility] Prescriptions: No Action bupropion HCl 150 mg tablet extended release 24 hr 150 mg PO DAILY citalopram 40 mg tablet 40 mg PO DAILY levothyroxine 175 mcg tablet 112 mcg PO DAILY Rx Instructions: Take 1 Tab days 1-6 and on day 7 take 1.5 Tab. levothyroxine 50 mcg capsule 50 mcg PO QDAY fexofenadine [[facility]rist[facility] Allergy] .ROUTE Stand Alone Forms: [employer] Info Instructions
[2024-10-20 20:26] LABS: Hematocrit* 35.9 % (33.0-51.0); Hemoglobin* 11.7 gm/dL (12.0-16.0); Immature Granulocytes Abs Auto 0.11 K/uL (0.00-0.30); Immature Granulocytes Pct Auto 1.2 %; Lymphocytes Absolute Auto 2.52 K/uL (0.90-2.90); Mean Corpuscular HGB Conc 33 gm/dL (32-36); Mean Corpuscular Hemoglobin 28 pg (26-34); Mean Corpuscular Volume 85 fL (80-100); RDW Coefficient of Variation % 14.7 % (11.5-15.5); Red Blood Count* 4.23 m/uL (4.00-5.20); White Blood Count* 8.83 K/uL (4.50-11.00)
[2024-10-20 20:27] LABS: Slide Review Reflex No
[2024-10-20] MEDS: TENECTEPLASE 5 MG/ML inj 25 MG IVP (20:33)
[2024-10-20 20:53] LABS: Albumin* 3.4 g/dL (3.3-5.0); Chloride* 102 mmol/L (96-114); Potassium* 3.3 mmol/L (3.6-5.1); Sodium* 134 mmol/L (135-149)
[2024-10-20 20:56] LABS: Alanine Aminotransferase* 24 U/L (4-35); Alkaline Phosphatase* 66 U/L (40-150); Anion Gap 6 mEq/L (7-15); Aspartate Amino Transferase* 21 U/L (12-35); Bilirubin Total* 0.3 mg/dL (0.1-1.5); Blood Urea Nitrogen* 12 mg/dL (5-24); Carbon Dioxide* 26 mmol/L (20-32); Creatinine* 0.9 mg/dL (0.5-1.5); Est. Creatinine Clearance* 74.67; Estimated Glomerular Filt Rate 81 ml/min; Total Protein* 5.9 g/dL (6.0-8.3)
[2024-10-20 20:57] LABS: Calcium* 8.6 mg/dL (8.4-10.6); Glucose* 98 mg/dL (60-115)
[2024-10-20 21:12] LABS: INR 0.91 (0.91-1.10); Prothrombin Time 13.1 Seconds
== END 2024-10-20 21:15 | disposition short-term general hospital (02) ==
PROVIDERS: Emergency Provider Family Medicine; PCP Family Medicine
DX: I63.9 Cerebral infarction, unspecified (principal)
CPT/HCPCS: 36415; 70450; 70496; 70498; 80053; 85025; 85610; 85730; 93005; 94761; 96374; 99284; 99291; G0427; J3101; Q9967

== ENCOUNTER 2024-10-20 20:53 | Outpatient (CLI) | payer OTHER, MEDICAID, SELFPAY | END 2024-10-20 20:54 | disposition home or self-care (01) | LOC: AMB 10-23 15:04 | PROVIDERS: PCP Family Medicine; Visit Provider Family Medicine | DX: R20.0 Anesthesia of skin (principal); R47.81 Slurred speech | CPT/HCPCS: A0425; A0427 ==